=== PATIENT | male | born 1965 | race Caucasian/White ===

== ENCOUNTER 2016-09-03 15:03 | Emergency (ER) | payer OTHER ==
[~2016-09-03] VITALS: Ht 172.7 cm; Wt 70.3 kg
[~2016-09-03 15:03] MED LIST: ALLOPURINOL100 MG PO; ASMANEX TW0.22 MG/A1 INH; AUGMENTIN 875 M1 TAB PO; COLCHICINE0.6 MG PO; FLUTICASON0.05 MG/A2 NAS; IBUPROFEN800 MG PO
[2016-09-03 15:19] VITALS: BP 128/75
--- NOTE | 2016-09-03 17:05 | ED UPPER/LOWER EXTREMITY COMPL ---
History of Present Illness General Chief Complaint: Lower Extremity Problems Stated Complaint: L KNEE PAIN- NO KNOWN INJURY Source: patient Exam Limitations: no limitations Vital Signs & Intake/Output Vital Signs & Intake/Output Vital Signs Date Time Temp Pulse Resp B/P B/P Pulse O2 O2 Flow FiO2 Mean Ox Delivery Rate 09/03 1519 98.9 81 20 128/75 97 Room Air Allergies Coded Allergies: cat pelt standardized allergenic ex (CAT PELT STANDARDIZED EXTRACT) (UNKNOWN REACTION TO CATS 09/03/16) Uncoded Allergies: TREE BARK (FROM ALLERGY TESTING 09/03/16) Reconcile Medications Allopurinol 100 MG TAB 1 TAB PO DAILY GOUT (Reported) Colchicine 0.6 MG TAB 2 TAB PO ONCE GOUT ATTACK INITIAL DOSE 2 TABS ONE HOUR LATER TAKE 1 TAB Diclofenac Potassium 50 MG TABLET 1 TAB PO TID PRN KNEE PAIN Fluticasone Propionate 50 MCG/ACTUATION SPRAY.SUSP 2 SPRAY NAZARIO DAILY ALLERGIES (Reported) Ibuprofen 800 MG TABLET 800 MG PO Q4-6 PRN PRN PAIN Mometasone Furoate (Asmanex Twisthaler) 0.22 MG/Actuation POW 1 PUFF INH DAILY ASTHMA (Reported) Triage Note: TRIAGE: PT TO ER C/C L KNEE PAIN SINCE MONDAY. INTERMITTENT SINCE ONSET. NO KNOWN INJURY OR AGGRAVATING FACTOR. ONSET OF PAIN WHILE WALKING AROUND AT WORK. PAIN FREE WHILE SITTING AT TRIAGE. PAIN AT HIGHEST 7-8/10, SHARP IN NATURE WHEN PRESENT. HAS TRIED ICE, HEAT, ELEVATION AND MOTRIN. STATES ONLY FELT SOME RELIEF WITH MOTRIN OTHER METHODS PROVIDED NO RELIEF. KNEE IS WARM TO TOUCH. Triage Nurses Notes Reviewed? yes Onset: Gradual Duration: day(s):, continues in ED, getting worse, intermittent Timing: ONSET WHILE WALKING AT WORK Severity: severe Severity Numbers: 8 HPI: Pt presents for eval of left knee pain and swelling. Patient states he had a gradual onset of knee pain that worsens with ambulation. He has tried ibuprofen without much relief. It is a sharp throbbing pain that gets severe at times. Past History Travel History Traveled to [place] past 21 day No Medical History Any Pertinent Medical History? see below for history Neurological: NONE EENT: NONE Cardiovascular: NONE Respiratory: asthma Gastrointestinal: NONE Hepatic: NONE Renal: NONE Musculoskeletal: NONE Psychiatric: NONE Endocrine: NONE Blood Disorders: NONE Cancer(s): NONE TONG HOOKER/Reproductive: NONE History of MRSA: No History of VRE: No History of CDIFF: No Surgical History Surgical History: non-contributory Psychosocial History Who do you live with Spouse Services at Home None What is your primary language Vietnamese Tobacco Use: Never used ETOH Use: denies use Illicit Drug Use: denies illicit drug use Family History Hx Contributory? No Review of Systems Review of Systems Constitutional: Reports: no symptoms. EENTM: Reports: no symptoms. Respiratory: Reports: no symptoms. Cardiovascular: Reports: no symptoms. Gastrointestinal/Abdominal: Reports: no symptoms. Genitourinary: Reports: no symptoms. Musculoskeletal: Reports: no symptoms. Skin: Reports: no symptoms. Neurological/Psychological: Reports: no symptoms. Hematologic/Endocrine: Reports: no symptoms. Immunological: Reports: no symptoms. All Other Systems: Reviewed and Negative Physical Exam Physical Exam General Appearance: SEE BELOW Comments: Gen.: Well-nourished, well-developed, no acute respiratory distress. Head: Normocephalic, atraumatic. Eyes: Normal inspection bilaterally Ears: Normal inspection bilaterally Nose: Normal inspection, nasal cannula in place Throat/mouth : Moist mucosa Neck: Supple, full range of motion, no goiter Heart: Regular rate and rhythm Lungs: Quiet respirations Back: Normal range of motion Extremities: Left knee: Mild effusion without erythema or warmth. Patient ranges the knee well without pain passively although pain worsens with more extreme flexion. No ecchymoses noted. The knee is stable with no anterior drawer sign. The distal left lower extremity is neurovascularly intact. Neurologic: Cranial nerves grossly intact, speech is clear Skin: warm and dry Psychiatric: Calm, cooperative, no apparent delusions or hallucinations Progress Differential Diagnosis: cellulitis, contusion, dislocation, fracture, gout, septic arthritis Plan of Care: Orders Procedure Date/time Status Durable Medical Equipment 09/04 1819 Active Current Medications Sig/Candida Start time Last Medication Dose Stop Time Status Admin Naproxen 500 MG ONCE ONE 09/03 1829 UNVr (Naprosyn) 09/03 1830 Comments: Patient has no apparent risk factors for septic arthritis and I do not feel that his examination is consistent with this either. His knee x-ray suggests bursitis. Plan NSAID, knee immobilizer, rest and PMD follow-up. Departure Departure Disposition: HOME OR SELF CARE Condition: Stable Clinical Impression Primary Impression: Bursitis of left knee Qualifiers: Knee bursitis location: infrapatellar bursitis Qualified Code: M70.52 - Other bursitis of knee, left knee Referrals: MARTINEZ BYRNE,DANIA Harley (PCP/Family) Additional Instructions: Voltaren as needed for knee pain. Use the knee immobilizer as necessary. Cool compresses 2-3 times per day. Follow-up with your primary care physician this week for reevaluation. Return if any concerns or sudden worsening. Thank you for choosing the [facility] for your care. It was a pleasure to serve you today. Zev Shepard M.D. [facility] Departure Forms: Customer Survey General Discharge Information Prescriptions: Current Visit Scripts Diclofenac Potassium 1 TAB PO TID PRN KNEE PAIN #30 TAB
--- NOTE | 2016-09-03 17:41 | RADIOLOGY REPORT ---
EXAMINATION: XR KNEE, LEFT CLINICAL INFORMATION: Left knee effusion. Evaluate for fracture. COMPARISON: None TECHNIQUE: Four views of the left knee. FINDINGS: Bones have normal alignment at the patellofemoral and tibiofemoral joints. No acute fracture, subluxation or knee joint effusion. There is negligible marginal osteophyte formation at the compartments. There is chondrocalcinosis of the medial and lateral menisci. At the level of the anterior tibial tuberosity, there is a well-corticated 1.1 x 2 cm ossicle; this could be related to [place]-Schlatter disease during childhood. Soft tissue swelling and amorphous soft tissue calcification is seen in this area, as well. There is edema within the subcutaneous tissue and within Hoffa's fat pad. The outline of the distal patellar tendon is obscured by the soft tissue swelling. IMPRESSION: 1. Calcium deposition within the distal patellar tendon could reflect presence of chronic calcific tendinopathy. 2. Soft tissue swelling around the anterior tibial tuberosity raises suspicion for superficial and/or deep infrapatellar bursitis. Given that the outline of the distal patellar tendon is obscured by soft tissue swelling, the possibility of partial tearing of the patellar tendon should be considered, as well. 3. Chondrocalcinosis of the menisci. 4. No evidence of acute fracture or malalignment.
[2016-09-03] MEDS ORDERED: DICLOFENAC POTA50 M1 PO (18:22)
== END 2016-09-03 18:38 ==
LOC: ERH 15:03
DX: M70.52 Other bursitis of knee, left knee (principal)
CPT/HCPCS: 73562-LT